=== PATIENT | female | born 1980 | race Caucasian/White ===

== ENCOUNTER 2021-04-16 13:17 | Emergency (ER) | payer OTHER ==
[~2021-04-16] VITALS: Ht 154.9 cm; Wt 117.0 kg
--- NOTE | 2021-04-16 14:36 | RAD ---
XR LT WRIST 3VIEWS DATE: 04/16/2021 1:47 PM INDICATION: Pain COMPARISON: None. FINDINGS: Bones: There is no evidence of acute fracture or dislocation. Joints: The joint spaces are normal. Miscellaneous: None. IMPRESSION: No evidence of acute fracture. Electronically signed by: Iam King MD (04/16/2021 2:33 PM) KV[facility]
--- NOTE | 2021-04-16 14:38 | RAD ---
XR RT TIBIA+FIBULA , XR FOOT_RIGHT 3 VIEWS, XR KNEE 3 VIEWS_RT, XR EXAM OF ANKLE_RIGHT 3VIEWS DATE: 04/16/2021 1:47 PM INDICATION: Pain, fall COMPARISON: None. FINDINGS: Bones: Acute nondisplaced fracture at the inferior aspect of the lateral malleolus. Joints: The ankle mortise is congruent. No widening of the distal tibiofibular syndesmosis. Miscellaneous: Lateral ankle soft tissue swelling IMPRESSION: 1. Acute nondisplaced lateral malleolus fracture. 2. No acute fracture of the knee or foot. Electronically signed by: Iam King MD (04/16/2021 2:36 PM) SUSY
--- NOTE | 2021-04-16 14:51 | PHYS DOC ---
Past Medical History Past Medical History: No Pertinent History Past Surgical History: Tubal ligation Smoking Status: Never Smoker Alcohol Use: None Drug Use: None General Adult EDM: Chief Complaint: MECHANICAL FALL HPI: HPI: 41-year-old obese female resents to the ED with complaints of right lateral ankle pain after patient accidentally fell while walking outside. Patient states she was "going too fast" and landed forward on her right knee, twisted her right ankle. Also reports abrasion to her left wrist. Denies head injury or any loss of consciousness. Denies being under the influence of any alcohol or drugs. Is not any anticoagulants. Review of Systems: Review of Systems: Constitutional: Denies fever or chills. [] Eyes: Denies change in visual acuity. [] HENT: Denies nasal congestion or sore throat. [] Respiratory: Denies cough or shortness of breath. [] Cardiovascular: Denies chest pain or edema. [] GI: Denies nausea or vomiting : Denies saddle anesthesia or incontinence Musculoskeletal: Denies back pain or flank pain Integument: Denies rash or diaphoresis Neurologic: Denies headache, neck pain, focal weakness or sensory changes. [] Endocrine: Denies polyuria or polydipsia. [] Lymphatic: Denies swollen glands. [] Psychiatric: Denies depression or anxiety. [] Heart Score: C/O Chest Pain: No Risk Factors: Risk Factors: DM, Current or recent (<one month) smoker, HTN, HLP, family history of CAD, obesity. Risk Scores: Score 0 - 3: 2.5% MACE over next 6 weeks - Discharge Home Score 4 - 6: 20.3% MACE over next 6 weeks - Admit for Clinical Observation Score 7 - 10: 72.7% MACE over next 6 weeks - Early Invasive Strategies Allergies: Allergies: Allergies Coded Allergies Type Severity Reaction Last Updated Verified No Known Drug Allergies 01/15/14 No Physical Exam: PE: Constitutional: Well developed, well nourished, no acute distress, non-toxic appearance. HENT: Normocephalic, atraumatic, Eyes: EOMI, conjunctiva normal, no discharge. Neck: Normal range of motion, supple, Cardiovascular: S1/2 present, regular rhythm Lungs & Thorax: Speaking in full sentences, bilateral equal chest rise, no tachypnea or increased work of breathing Abdomen: soft, no tenderness, Skin: Warm, dry, no erythema, no rash. [] Back: No midline step-offs or tenderness, no CVA tenderness. [] Extremities: Tender right lateral malleoli with visible edema/swelling, DP/PT pulses equal, cap refill less than 1 second, abrasion to right patella with no right fibular head pain or gross right knee pain, abrasion over dorsal aspect of left wrist-significant pain with any right foot weightbearing Neurologic: Alert and oriented X 3, normal motor function, normal sensory function, no focal deficits noted. [] Psychologic: Affect normal, judgement normal, mood normal. [] Current Patient Data: Labs: Laboratory Tests Test 04/16/21 13:55 POC Urine HCG, Qualitative Hcg negative (Negative) Vital Signs: Vital Signs Date Time Temp Pulse Resp B/P (MAP) Pulse Ox O2 Delivery O2 Flow Rate FiO2 04/16/21 13:19 98.9 99 22 110/71 (84) 98 Room Air 98.9 EKG: EKG: [] Radiology/Procedures: Radiology/Procedures: []IMAGING REPORT Signed PATIENT: ROXANE PATELACCOUNT: [id number] : 1980 LOCATION: ER AGE: 41 SEX: F EXAM STATUS: REG ER ORD. PHYSICIAN: AYESHA RAMIREZ DO REASON: fall PROCEDURE: TIBIA FIBULA RIGHT XR RT TIBIA+FIBULA , XR FOOT_RIGHT 3 VIEWS, XR KNEE 3 VIEWS_RT, XR EXAM OF AN KLE_RIGHT 3VIEWS DATE: 04/16/2021 1:47 PM INDICATION: Pain, fall COMPARISON: None. FINDINGS: Bones: Acute nondisplaced fracture at the inferior aspect of the lateral malleolus. Joints: The ankle mortise is congruent. No widening of the distal tibiofibular syndesmosis. Miscellaneous: Lateral ankle soft tissue swelling IMPRESSION: 1. Acute nondisplaced lateral malleolus fracture. 2. No acute fracture of the knee or foot. Electronically signed by: Juan Mai MD (04/16/2021 2:36 PM) [facility] DICTATED and SIGNED BY: JUAN MAI MD DATE: 04/16/21 [id number] IMAGING REPORT Signed PATIENT: ROXANE PATELACCOUNT: [id number] : 1980 LOCATION: ER AGE: 41 SEX: F EXAM STATUS: REG ER ORD. PHYSICIAN: AYESHA RAMIREZ DO REASON: lateral ankle pain PROCEDURE: WRIST 3V LEFT XR LT WRIST 3VIEWS DATE: 04/16/2021 1:47 PM INDICATION: Pain COMPARISON: None. FINDINGS: Bones: There is no evidence of acute fracture or dislocation. Joints: The joint spaces are normal. Miscellaneous: None. IMPRESSION: No evidence of acute fracture. Electronically signed by: Juan Mai MD (04/16/2021 2:33 PM) [facility] DICTATED and SIGNED BY: JUAN MAI MD DATE: 04/16/21 [id number] Patient informed of findings. Ankle stirrup splint applied by medic. The splint is checked by myself, with appropriate stabilization of the injury. Distal capillary refill normal and distal neurologic function normal/intact Course & Med Decision Making: Course & Med Decision Making Pertinent Labs and Imaging studies reviewed. (See chart for details) Concern for accidental, mechanical fall with right lateral malleoli fracture, displaced, closed. Patient splinted and provided crutches. Patient educated on analgesia. Will discharge home with strict ED return precautions were given for repeat injury, severe pain, neurologic deficits or skin color changes. Encouraged urgent outpatient follow-up with PMD and orthopedic surgery within 1 week. Life-threatening processes were considered but are low suspicion at this time, given history, physical exam and ED workup. Pt was educated on all prescription medications and adverse effects. All patient's questions were answered and pt was stable at time of discharge. Life/limb-threatening differential includes but is not limited to, avascular necrosis, septic arthritis, malignancy, compartment syndrome, fracture/ligamentous injury/overuse, decompression sickness, seronegative spondyloarthropathies, trauma including dislocation/fracture, Lyme disease, lupus, arthritis differentials, gout/pseudogout or decompression sickness. I have spoken with the patient and/or caregivers. I explained the patient's condition, diagnoses and treatment plan based on the information available to me at this time. I have answered the patient and/or caregiver's questions and addressed any concerns. The patient and/or caregivers have a good understanding of patient's diagnosis, condition and treatment plan as can be expected at this point. Vital signs have been stable. Patient's condition is stable and appropriate for discharge from the emergency department. Patient will pursue further outpatient evaluation with primary care physician or other designated or consulting physician as outlined in the discharge instructions. The patient and/or caregivers are agreeable to this plan of care and follow-up instructions have been explained in detail. The patient and/or caregivers have received these instructions in written form and have expressed an understanding of the discharge instructions. The patient and/or caregivers are aware that any significant change of condition or worsening of symptoms should prompt immediate return to this or the closest emergency department or call to 1. Gina Disclaimer: Gina Disclaimer: This electronic medical record was generated, in whole or in part, using a voice recognition dictation system. Departure Departure Impression: Primary Impression: Closed fracture of lateral malleolus of left fibula Disposition: HOME / SELF CARE / HOMELESS Condition: STABLE Referrals: NO PCP (PCP) Follow-up with your primary care physician in 24 to 48 hours OR FOLLOW UP WITH FAMILY MEDICINE: [id number] [facility], [facility] [address] [place] [address] Patient Instructions: Crutch Use, Fibular Fracture, Ankle, Adult, Undisplaced, Treated with Immobilization Additional Instructions: FOLLOW UP WITH ORTHOPEDICS: FOR DEFINITIVE MANAGEMENT of fibular fracture within 1 week Orthopaedic Surgery [address] [facility], [facility] [address] [place] [address] EMERGENCY DEPARTMENT GENERAL DISCHARGE INSTRUCTIONS Thank you for coming to [facility] Emergency Department (ED) today and trusting us with you care. We trust that you had a positive experience in our Emergency Department. If you wish to speak to the department management, you may call the Director at [phone]. YOUR FOLLOW UP INSTRUCTIONS ARE FOLLOWS: 1. Do you have a private Doctor? If you do not have a private doctor, please ask for a resource list of physicians or clinics that may be able to assist you with follow up care. 2. The Emergency Physicain has interpreted your x-rays. The X-Ray specialist will also review them. If there is a change in the findings, you will be notified in 48 hours when at all possible. 3. A lab test or culture has been done, your results will be reviewed and you will be notified if you need a change in treatment. ADDITIONAL INSTRUCTIONS AND INFORMATION: 1. Your care today has been supervised by a physician who is specially trained in emergency care. Many problems require more than one evaluation for a complete diagnosis and treatment. We recommend that you schedule your follow up appointment as recommended to ensure complete treatment of you illness or injury. If you are unable to obtain follow up care and continue to have a problem, or if your condition worsens, we recommend that you return to the ED. 2. We are not able to safely determine your condition over the phone nor are we able to give sound medical advice over the phone. For these safety reasons, if you call for medical advice we will ask you to come to the ED for further evaluation. 3. If you have any questions regarding these discharge instructions please call the ED at [phone]. SAFETY INFORMATION: In the interest of safety, wellness, and injury prevention; we encourage you to wear your sealbelt, if you smoke; quite smoking, and we encourage family to use a protective helmet for bicycling and other sporting events that present an increased risk for head injury. IF YOUR SYMPTOMS WORSEN OR NEW SYMPTOMS DEVELOP, OR YOU HAVE CONCERNS ABOUT YOUR CONDITION; OR IF YOUR CONDITION WORSENS WHILE YOU ARE WAITING FOR YOUR FOLLOW UP APPOINTMENT; EITHER CONTACT YOUR PRIMARY CARE DOCTOR, THE PHYSICIAN WHOSE NAME AND NUMBER YOU WERE GIVEN, OR RETURN TO THE ED IMMEDIATELY. Scripts Hydrocodone Bit/Acetaminophen (HYDROCODONE-APAP 5-325 ) 1 Tab Tablet 1 TAB PO PRN Q6HRS PRN for PAIN for 4 Days, #16 TAB 0 Refills Prov: AYESHA RAMIREZ DO 04/16/21 AYESHA RAMIREZ DO Apr 16, 2021 14:51
[2021-04-16] MEDS ORDERED: HYDR-2761 PO (15:58)
[2021-04-16] MEDS ORDERED: HYDROcodone/APAP 7.5/325MG 1 TAB TABLET PO ONE (16:00)
[2021-04-16] MEDS ORDERED: HYDROcodone/APAP 7.5/325MG 1 TAB TABLET ONE (16:07)
[2021-04-16 17:13] VITALS: BP 116/56
== END 2021-04-16 17:33 | disposition home or self-care (01) ==
LOC: ER 13:17
DX: S82.62XA Displaced fracture of lateral malleolus of left fibula, initial encounter for closed fracture (principal); M25.561 Pain in right knee; W18.39XA Other fall on same level, initial encounter; Y93.01 Activity, walking, marching and hiking; Y92.89 Other specified places as the place of occurrence of the external cause; Y99.8 Other external cause status
CPT/HCPCS: 29515; 73120; 73562; 73590; 73610; 73630; 81025; 99285-25